=== PATIENT | female | born 1950 ===

== ENCOUNTER → 2018-05-14 | Day surgery (SDC) | payer OTHER ==
[~2018-05-14] MED LIST: ADVAIR250; EVISTA60 MG PO; FORTAMET1000 MG PO; GLIMEPIRIDE4 MG PO; HYZAAR 100-12.1 EACH PO; PERCOCET 5-3251 EACH PO; PROCARD PO; SINGULAIR10 MG PO; ZANTAC300 MG PO; ZOCOR20 MG PO; ZOLOFT50 MG PO
== END | disposition home or self-care (01) ==
LOC: CIR.AMB 06:56
DX: K80.10 Calculus of gallbladder with chronic cholecystitis without obstruction (principal)